=== PATIENT | male | born 1985 | race Hispanic/Latino ===

== ENCOUNTER 2020-04-03 14:57 | Emergency (ER) | payer OTHER ==
[2020-04-03] MEDS ORDERED: RALTEGRAVIR POTASSIUM 400 MG TAB PO ONE (15:56)
[2020-04-03] MEDS ORDERED: EMTRICITABINE/TENOFOVIR 200/300 MG TAB ONE (15:56)
== END 2020-04-03 16:46 | disposition home or self-care (01) ==
LOC: EDH 14:57
DX: S05.92XA Unspecified injury of left eye and orbit, initial encounter (principal); K21.9 Gastro-esophageal reflux disease without esophagitis; Z88.0 Allergy status to penicillin; Z20.828 Contact with and (suspected) exposure to other viral communicable diseases; X58.XXXA Exposure to other specified factors, initial encounter; Y93.89 Activity, other specified; Y92.89 Other specified places as the place of occurrence of the external cause; Y99.8 Other external cause status
CPT/HCPCS: 36415; 86701; 86704; 86706; 87390; 87426; 87520; 99283; U0003